=== PATIENT | male | born 1950 | race Caucasian/White ===

== ENCOUNTER 2022-06-27 09:05 | Outpatient (CLI) | payer MEDICARE, BC, SELFPAY ==
[2022-06-27 14:27] LABS: Chloride* 106 mmol/L (96-114)
[2022-06-27 14:28] LABS: Potassium* 4.6 mmol/L (3.6-5.1); Sodium* 143 mmol/L (135-149)
[2022-06-27 14:30] LABS: Cholesterol* 138 mg/dL (90-199); Creatinine* 1.3 mg/dL (0.5-1.5); Estimated Glomerular Filt Rate 59 ml/min
[2022-06-27 14:31] LABS: Alanine Aminotransferase* 37 U/L (4-50); Blood Urea Nitrogen* 23 mg/dL (7-30); Calcium* 9.2 mg/dL (8.4-10.6); Carbon Dioxide* 29 mmol/L (20-32); Glucose* 113 mg/dL (60-115); Triglycerides* 131 mg/dL (40-149)
[2022-06-27 14:32] LABS: HDL Cholesterol* 32 mg/dL (>=40); LDL Cholesterol Calculated 80 mg/dL (<100)
[2022-06-27 15:03] LABS: PSA Screen* 0.46 ng/mL (0.10-4.00)
== END 2022-06-27 09:06 | disposition home or self-care (01) ==
PROVIDERS: PCP Family Medicine; Visit Provider Family Medicine
DX: F34.1 Dysthymic disorder (principal); N52.9 Male erectile dysfunction, unspecified; F41.9 Anxiety disorder, unspecified; E78.5 Hyperlipidemia, unspecified; Z12.5 Encounter for screening for malignant neoplasm of prostate
CPT/HCPCS: 80048; 80061; 84153; 84460

== ENCOUNTER 2023-07-04 09:42 | Outpatient (CLI) | payer MEDICARE, BC, SELFPAY | END 2023-07-04 09:43 | disposition home or self-care (01) | PROVIDERS: PCP Family Medicine; Visit Provider Family Medicine | DX: Z00.00 Encounter for general adult medical examination without abnormal findings (principal); Z12.5 Encounter for screening for malignant neoplasm of prostate; E78.2 Mixed hyperlipidemia; K21.9 Gastro-esophageal reflux disease without esophagitis; I73.00 Raynaud's syndrome without gangrene; R35.0 Frequency of micturition; N52.9 Male erectile dysfunction, unspecified; F41.9 Anxiety disorder, unspecified; F32.A Depression, unspecified | CPT/HCPCS: 80048; 80061; 84153; 84460; 85025 ==

== ENCOUNTER 2024-07-09 12:34 | Outpatient (CLI) | payer MEDICARE, BC, SELFPAY | END 2024-07-09 12:35 | disposition home or self-care (01) | PROVIDERS: PCP Family Medicine; Visit Provider Family Medicine | DX: E78.2 Mixed hyperlipidemia (principal); R30.0 Dysuria; Z12.5 Encounter for screening for malignant neoplasm of prostate; F34.1 Dysthymic disorder | CPT/HCPCS: 80048; 80061; 84460; 85025; G0103 ==

== ENCOUNTER 2025-05-01 10:51 | Outpatient (CLI) | payer MEDICARE, BC, SELFPAY | END 2025-05-01 10:52 | disposition home or self-care (01) | PROVIDERS: PCP Family Medicine; Visit Provider Family Medicine | DX: Z01.818 Encounter for other preprocedural examination (principal) | CPT/HCPCS: 80048; 85025 ==

== ENCOUNTER 2025-05-14 06:02 | Day surgery (SDC) | payer MEDICARE, BC, SELFPAY ==
[2025-05-14] VITALS (20 sets, daily range): BP systolic 122–169; BP diastolic 69–90; PULSE 63–72; RESP 12–16; TEMP 36.5–37.3; O2SAT 85–100; BMI 32.8
[2025-05-14] MEDS: SODIUM CHLORIDE 0.9 % (FLUSH) 10 ML SYRINGE IVF (06:45)
[2025-05-14] MEDS: OXYCODONE (CR) 10 MG TAB.ER.12H PO (06:45)
[2025-05-14] MEDS: LACTATED RINGERS 1000 ML 1,000 ML 100 ML IV ×2 (06:45→08:39)
[2025-05-14] MEDS: CELECOXIB 200 MG CAPSULE PO (06:45)
[2025-05-14] MEDS: ACETAMINOPHEN 500 MG TABLET 1000 MG PO (06:45)
[2025-05-14] MEDS: MIDAZOLAM HCL 1 MG/ML inj IVP (07:08)
--- NOTE | 2025-05-14 07:15 | SUR.PREOP ---
TIME?OUT:?0708 PT/RN/MDA?VERIFICATION?OF?SURGICAL?SITE,?PROCEDURE,?AND?CONSENT OBTAINED?PRIOR?TO?INVASIVE?PROCEDURE.
--- NOTE | 2025-05-14 07:16 | CRLHL7_ITS ---
For Patients: As a result of the Cures Act, medical imaging exams and procedure reports are released immediately into your electronic medical record. You may view this report before your referring provider. If you have questions, please contact your health care provider. Indication: Hip replacement surgery Technique: AP hip fluoroscopic images. Fluoroscopy time 70.8 seconds. Findings/Impression: Hardware from a right total hip arthroplasty is in satisfactory position. Dictated by Florentino Hurst MD @ 05/14/2025 10:09:42 AM (Electronically Signed)
[2025-05-14] MEDS: TRANEXAMIC ACID 100 MG/ML INJ 1000 MG IV (07:42)
--- NOTE | 2025-05-14 09:12 | CRLHL7_ITS ---
For Patients: As a result of the Cures Act, medical imaging exams and procedure reports are released immediately into your electronic medical record. You may view this report before your referring provider. If you have questions, please contact your health care provider. Indication: Postop Technique: AP hip centered pelvis and lateral view right hip Findings/Impression: Hardware from a right total hip arthroplasty is in satisfactory position. Bone alignment is normal. No sign of acute fracture. Postop changes are within normal limits. Dictated by Florentino Hurst MD @ 05/14/2025 12:48:06 PM (Electronically Signed)
--- NOTE | 2025-05-14 09:14 | P.ORPRC_ITS ---
Procedure Note Date of procedure: 05/14/25 Procedure: PREOPERATIVE DIAGNOSIS: Right hip osteoarthritis POSTOPERATIVE DIAGNOSIS: Right hip osteoarthritis NAME OF OPERATION: Right total hip arthroplasty SURGEON: Helder Aceves MD STAFFING PROGRAM MANAGER: Radha Murillo PA-C, NAKITA Kinney IMPLANTS: 1. [employer] [place] # 56 sector ingrowth cup 2. 36 x 56 +4 neutral polyethylene 3. Actis # 6 standard collared ingrowth stem 4. 36 -2 ceramic femoral head ANESTHESIA: General ESTIMATED BLOOD LOSS: 150 cc COMPLICATIONS: None SPECIMENS: None DRAINS: None PREOPERATIVE ANTIBIOTICS: Ancef 2 g INDICATIONS: The patient is a 74-year-old with a longstanding history of severe, unrelenting right hip pain secondary to end-stage right hip osteoarthritis. Despite appropriate nonoperative management, including activity modification, use of an assist device, anti-inflammatories, [id number] pain medication, physical therapy and injections, they continue to have pain and disability. Operative intervention was offered. The risks, benefits and expected outcomes were discussed in detail. These included but were not limited to: Infection, bleeding, injury to blood vessel or nerve, venous thromboembolism. All questions were answered to their satisfaction. Use of an teacher assistant was necessary throughout the case for patient positioning and safety, soft tissue retraction and closure. PROCEDURE: The patient was placed supine on the [place] table. General Anesthesia was administered. The teacher assistant made sure the patient was properly positioned. The right hip was prepped and draped in the usual sterile fashion. The image intensifier was brought in for a perfect AP pelvis and a perfect double tear drop AP view of each hip which were used for intraoperative templating with our fluoroscopic guide. A bikini incision was made parallel to the hip flexion crease. The teacher assistant retracted the soft tissues to protect them. Subcutaneous dissection was taken with electrocautery to the superficial fascia. The fascia was divided in line with the incision. Blunt dissection was carried medially to the tensor fascia alec and sartorius interval. Deep dissection was carried with electrocautery. The circumflex vessels were cauterized and divided. The capsule was exposed and then divided in a T-fashion, tagged with #1 FiberWire sutures. Retractors were placed in the joint, held by the teacher assistant. The corkscrew was placed in the femoral head. The neck cut was made in the subcapital region. We made a second neck cut more distal. The napkin ring of bone was removed. The femoral head was removed intact. Acetabular retractors were placed, held by the teacher assistant. The labrum was sharply debrided. The capsule was released. The 43 mm reamer was used to the true medial wall. We then enlarged in 2 mm increments using the image intensifier for our reamer placement. We impacted the cup which had excellent purchase. We placed the polyethylene. Attention was then turned to the proximal femur. The limb was placed in 140 degrees of external rotation, maximum extension and adduction. The capsule was released to allow us to deliver the femur into the wound and complete the femoral side. Retractors were held by the teacher assistant throughout the femoral preparation. The box sealing machine catcher and canal finder were used. Broaches were used to a stable size. The calcar reamer was used. Trial components were placed. The hip was reduced and was found to be stable with appropriate soft tissue tension. Length and offset had been nicely restored using the image intensifier and our fluoroscopic guide. Trial components were removed. The stem was impacted. We placed the femoral head. Again, the hip was reduced and was found to be stable with appropriate soft tissue tension. Length and offset had been nicely restored. The teacher assistant did a three minute dilute Betadine solution soak. The teacher assistant irrigated the wound with 3 liters of normal saline via pulse lavage. The teacher assistant repaired the anterior capsule with a #1 Vicryl and our previously pl aced Ethibond sutures. The teacher assistant closed the fascia over the tensor fascia alec with a #1 PDO Stratafix, subcutaneous tissues with 2-0 Vicryl, skin with a running 3-0 Stratafix and 4-0 Monocryl subcuticular. A dry dressing was applied by the teacher assistant. Sponge and needle counts were correct x 2. The patient tolerated the procedure well; there were no apparent complications. They were awakened and extubated in the operating room, sent to the Post-Anesthesia Care Unit in satisfactory condition. PLAN: 1. The patient will be mobilized with physical therapy, weight-bearing as tolerates 2. Xarelto x 5 days then aspirin x 30 days will be used for DVT prophylaxis 3. The patient will be discharged once medically appropriate
--- NOTE | 2025-05-14 09:57 | P.NB_ITS ---
Nerve Block Nerve Block Time Seen by Provider: 07:15 Date Seen: 05/14/25 Type of block requested by surgeon for post-operative analgesia: NAKIA/LFCN Side: right Time out performed: Yes Verification of patient name: Yes Verification of date of : Yes Site marking: site marked Name of person performing procedure: Bud Continuous monitoring Was continuous monitoring of O2 sat, B/P, monitor car operator, recorded every 15 minutes?: Yes Procedure Checklist: sterile prep, needles and gloves Ultrasound guided. Images saved: Yes Medications given in 5ml increments after negative aspiration: Ropivicaine %: 0.5 mL: 30 Needle gauge: 20 Precedex (mcg): 25 Patient tolerated procedure well: Yes Additional comments: Needle noted below psoas tendon needle noted adjacent to LFCN Block Charges Block Charge (with Pro Fee): Other Periph Nerve Block Use of Ultrasound Machine for Block: Yes- US Guidance/pain block
--- NOTE | 2025-05-14 10:04 | P.ANES_ITS ---
Anesthesia Charges Start Date/Time Anesthesia Start Date: 05/14/25 Anesthesia Start Time: 07:19 Stop Date/Time Anesthesia Stop Date: 05/14/25 Anesthesia Stop Time: 10:02 Summary Extremes of Age - Over 70 or under 1: DERMATOPATHOLOGIST Coding CPT Codes CPT Codes: ANESTH HIP ARTHROPLASTY - 82432 ([id number]) P2 - PATIENT W/MILD SYST DISEASE, QK - BEEF BREAKER 2-4 CNCRNT ANES PROC, QX - DERMATOPATHOLOGIST SVC W/ MD MED DIRECTION Additional Codes: Summary - Extremes of Age - Over 70 or under 1: DERMATOPATHOLOGIST ([id number])
--- NOTE | 2025-05-14 10:04 | W.ANESCHARGE ---
Anesthesia Charges Start Date/Time Anesthesia Start Date: 05/14/25 Anesthesia Start Time: 07:19 Stop Date/Time Anesthesia Stop Date: 05/14/25 Anesthesia Stop Time: 10:02 Summary Extremes of Age - Over 70 or under 1: BOBBIN DRIER Coding CPT Codes CPT Codes: ANESTH HIP ARTHROPLASTY - 22933 ([id number]) P2 - PATIENT W/MILD SYST DISEASE, QK - TOBACCO FLAVORER 2-4 CNCRNT ANES PROC, QX - BOBBIN DRIER SVC W/ MD MED DIRECTION Additional Codes: Summary - Extremes of Age - Over 70 or under 1: BOBBIN DRIER ([id number])
--- NOTE | 2025-05-14 10:10 | P.ANES_ITS ---
Anesthesia Charges Start Date/Time Anesthesia Start Date: 05/14/25 Anesthesia Start Time: 07:19 Stop Date/Time Anesthesia Stop Date: 05/14/25 Anesthesia Stop Time: 10:02 Summary Extremes of Age - Over 70 or under 1: MDA Coding CPT Codes CPT Codes: ANESTH HIP ARTHROPLASTY - 72326 ([id number]) P2 - PATIENT W/MILD SYST DISEASE, QK - RECOOPERER 2-4 CNCRNT ANES PROC, QX - PROGRAM MANAGEMENT INTERN SVC W/ MD MED DIRECTION Additional Codes: Summary - Extremes of Age - Over 70 or under 1: MDA ([id number])
--- NOTE | 2025-05-14 10:10 | W.ANESCHARGE ---
Anesthesia Charges Start Date/Time Anesthesia Start Date: 05/14/25 Anesthesia Start Time: 07:19 Stop Date/Time Anesthesia Stop Date: 05/14/25 Anesthesia Stop Time: 10:02 Summary Extremes of Age - Over 70 or under 1: MDA Coding CPT Codes CPT Codes: ANESTH HIP ARTHROPLASTY - 67996 ([id number]) P2 - PATIENT W/MILD SYST DISEASE, QK - COMMUNICATIONS MARKETING INTERN 2-4 CNCRNT ANES PROC, QX - PROOF MACHINE OPERATOR SUPERVISOR SVC W/ MD MED DIRECTION Additional Codes: Summary - Extremes of Age - Over 70 or under 1: MDA ([id number])
--- NOTE | 2025-05-14 13:40 | SUR.PHASEII ---
OT in room with patient and spouse.
== END 2025-05-14 15:03 | disposition home or self-care (01) ==
LOC: OR 06:04
PROVIDERS: PCP Family Medicine; Visit Provider Orthopaedic Surgery
PROC: (CPT 27130; principal; 2025-05-14 07:15)
DX: M16.11 Unilateral primary osteoarthritis, right hip (principal); G89.18 Other acute postprocedural pain
CPT/HCPCS: 27130; 01214; 36415; 64450; 73501; 76942; 86850; 86900; 86901; 97110; 97116; 97161; 97165; 97535; 99100; A9270; C1776; J0330; J0690; J1100; J1171; J2250; J2371; J2405; J2704; J3010; J3490; J7120